=== PATIENT | female | born 1970 ===

== ENCOUNTER 2021-02-26 15:03 | Inpatient (IN) | payer BC, OTHER ==
[~2021-02-26] VITALS: Ht 165.1 cm; Wt 89.6 kg
[2021-02-26] MEDS: SODIUM CHLORIDE 0.9% 1,000 ML IV SCH ×2 (06:00→16:00)
--- NOTE | 2021-02-26 15:22 | NUR ---
PER RAHEL PEREZ HOLD HEPARIN GTT FOR NOW, PLAN LABS AND ASA.
[2021-02-26] MEDS ORDERED: ASPIRIN 81 MG TABLET CHEW PO ONE (15:30)
[2021-02-26] MEDS ORDERED: ASPIRIN 81 MG TABLET CHEW ONE (15:32)
--- NOTE | 2021-02-26 15:39 | NUR ---
ift from [place]. pt found out her father today, started having chest pain, went to ER, trop 197 ng/ml, nstemi, heparin gtt started at 10 ml/hr xapprox 3 hours, also received 81 mg asa, 650 tylenol, gi cocktail, and 0.4 nitro. pt w a&ox4 gcs 15, mostly portuguese speaking, family at bedside. ST 110s w inverted t waves, bp stable, chest pain very minimal and on R side, 2nd piv est, was at bedside, labs sent by [facility] per sep, to [facility]. as
[2021-02-26 15:44] LABS: BASOPHILS % (AUTO) 1 % (0-1); EOSINOPHILS % (AUTO) 1 % (1-7); LYMPHOCYTES % (AUTO) 16 % (22-44); MEAN CORPUSCULAR HEMOGLOBIN 21.8 pg (27.0-34.8); MEAN CORPUSCULAR HGB CONC 32.1 g/dL (32.4-35.8); MEAN PLATELET VOLUME 6.7 fL (7.4-10.4); MONOCYTES % (AUTO) 5 % (2-9); NEUTROPHILS % (AUTO) 78 % (42-75); PLATELET COUNT 498 x10^3/uL (130-400); RED BLOOD COUNT 5.51 x10^6/uL (3.82-5.3); RED CELL DISTRIBUTION WIDTH 22.1 % (9.6-15.2)
[2021-02-26 15:56] LABS: ALBUMIN 3.5 g/dL (3.4-5.0); ANION GAP 10 mmol/L (5-15); CALCIUM 9.1 mg/dL (8.5-10.1); CHLORIDE 108 mmol/L (98-107); CREATININE 0.51 mg/dL (0.55-1.02)
[2021-02-26 16:01] LABS: INTERNATIONAL NORMALIZED RATIO 1.01 (0.93-1.1); PROTHROMBIN TIME 10.8 Seconds (9.6-11.5)
[2021-02-26 16:05] LABS: ANISOCYTOSIS 1+
[2021-02-26 16:06] LABS: HYPOCHROMIA 1+; MICROCYTOSIS 2+
[2021-02-26 16:07] LABS: <PLATELET ESTIMATE> INCREASED; <PLT MORPHOLOGY> NORMAL PLT MORPH
[2021-02-26] MEDS ORDERED: HEPARIN 25,000 UNITS/250ML PMX 250 ML IV PRN (16:30)
[2021-02-26] MEDS ORDERED: HEPARIN 5,000 UNITS/ML, 1ML IV ONE (16:30)
--- NOTE | 2021-02-26 16:40 | NUR ---
CERTIFIED WELLNESS PROGRAM COORDINATOR DR. HOPSON IN SEEING PT AT THIS TIME. PT KIDS AT BEDSIDE TO TRANSLATE
[2021-02-26] MEDS ORDERED: LISI-170 PO (16:47)
[2021-02-26] MEDS ORDERED: CELE200C PO (16:47)
[2021-02-26] MEDS ORDERED: HEPARIN 25,000 UNITS/250ML PMX 250 ML ONE (16:52)
[2021-02-26] MEDS ORDERED: HEPARIN 5,000 UNITS/ML, 1ML ONE (16:52)
--- NOTE | 2021-02-26 17:22 | NUR ---
attempted to placed large bore iv per cardiology order. unable to advance iv catheter x2. pt has 2 ivs, both 20 from [facility]. will maintain those for now. pt wanting to rest after multiple unsuccessful iv attempts.
[2021-02-26] MEDS ORDERED: ENALAPRILAT 1.25 MG/ML, 2ML IVPush PRN (17:30)
[2021-02-26] MEDS ORDERED: NITROGLYCERIN 0.4 MG/SPRAY SL PRN (17:30)
[2021-02-26] MEDS ORDERED: MELATONIN 5 MG TABLET PO PRN (17:30)
[2021-02-26] MEDS ORDERED: morphine SULFATE 10 MG/ML, 1ML IVPush PRN (17:30)
[2021-02-26] MEDS ORDERED: HYDROcodone/APAP 5/325 TABLET PO PRN (17:30)
[2021-02-26] MEDS ORDERED: NITROGLYCERIN 0.4 MG BOTTLE (25 TABS) SL PRN (17:30)
[2021-02-26] MEDS ORDERED: ONDANSETRON 2MG/ML, 2ML IVPush PRN (17:30)
--- NOTE | 2021-02-26 17:47 | NUR ---
REPORT TO SERGEI CHAUDHARI. SERGEI STATED ROOM IS NOT CLEAN, THEY WILL CALL WHEN ROOM IS READY.
[2021-02-26 18:30] VITALS: BP 145/89
[2021-02-26 19:54] VITALS: BP 142/88
[2021-02-26] MEDS: HEPARIN 5,000 UNITS/ML, 1ML IV PRN (23:35)
[2021-02-27 02:35] VITALS: BP 127/85
[2021-02-27] MEDS: SODIUM CHLORIDE 0.9% 1,000 ML IV SCH ×2 (02:41→13:37)
[2021-02-27 02:56] LABS: MICROSCOPIC AUTO
[2021-02-27] MEDS: HEPARIN 5,000 UNITS/ML, 1ML IV PRN (06:06)
[2021-02-27 08:59] VITALS: BP 114/76
[2021-02-27] MEDS ORDERED: ASPIRIN 81 MG TABLET EC PO SCH (09:00)
[2021-02-27] MEDS ORDERED: VERAPAMIL 2.5 MG/ML, 2ML ONE (11:41)
[2021-02-27] MEDS ORDERED: MIDAZOLAM 1 MG/ML, 5ML ONE (11:41)
[2021-02-27] MEDS ORDERED: TICAGRELOR 90 MG TABLET ONE (11:41)
[2021-02-27] MEDS ORDERED: HEPARIN 1,000 UNITS/ML, 10ML ONE (11:41)
[2021-02-27] MEDS ORDERED: BIVALIRUDIN 250 MG ONE (11:41)
[2021-02-27] MEDS ORDERED: LIDOCAINE-MPF 1%, 5ML ONE (11:41)
[2021-02-27] MEDS ORDERED: FENTANYL PF 100 MCG/2ML ONE (11:41)
[2021-02-27] MEDS ORDERED: SODIUM CHLORIDE 0.9% 1,000 ML IV SCH (13:30)
[2021-02-27 13:54] VITALS: BP 119/80
[2021-02-27 14:58] LABS: BASOPHILS % (AUTO) 1 % (0-1); EOSINOPHILS % (AUTO) 1 % (1-7); LYMPHOCYTES % (AUTO) 21 % (22-44); MEAN CORPUSCULAR HGB CONC 31.8 g/dL (32.4-35.8); MONOCYTES % (AUTO) 7 % (2-9); NEUTROPHILS % (AUTO) 70 % (42-75); PLATELET COUNT 462 x10^3/uL (130-400); RED BLOOD COUNT 5.27 x10^6/uL (3.82-5.3); RED CELL DISTRIBUTION WIDTH 22.3 % (9.6-15.2)
[2021-02-27 15:11] LABS: CHLORIDE 109 mmol/L (98-107)
[2021-02-27 15:12] LABS: ANION GAP 6 mmol/L (5-15); BILIRUBIN,TOTAL 0.3 mg/dL (0.2-1.0); CALCIUM 8.5 mg/dL (8.5-10.1); CREATININE 0.52 mg/dL (0.55-1.02)
[2021-02-27 15:13] LABS: ALANINE AMINOTRANSFERASE 29 U/L (12-78); ALBUMIN 2.9 g/dL (3.4-5.0); ALKALINE PHOSPHATASE 97 U/L (45-117); TOTAL PROTEIN 7.4 g/dL (6.4-8.2)
[2021-02-27 15:24] LABS: <PLATELET ESTIMATE> INCREASED; <PLT MORPHOLOGY> NORMAL PLT MORPH; ANISOCYTOSIS 1+; HYPOCHROMIA 1+; MICROCYTOSIS 2+
[2021-02-27] MEDS ORDERED: ASPI81TA45 PO (16:18)
[2021-02-27] MEDS ORDERED: ATOR40TA78 PO (16:18)
[2021-02-27] MEDS ORDERED: ATORVASTATIN 40 MG TABLET PO SCH (21:00)
== END 2021-02-27 18:07 | disposition home or self-care (01) | DRG 281 ==
LOC: ED 18:41 → EDIP 18:42 → 5SO 18:51
PROVIDERS: ADMIT Internal Medicine; ATTEND Hospitalist
PROC: 4A023N7 Measurement of Cardiac Sampling and Pressure, Left Heart, Percutaneous Approach (ICD-10-PCS; principal; 2021-02-27)
PROC: B2111ZZ Fluoroscopy of Multiple Coronary Arteries using Low Osmolar Contrast (ICD-10-PCS; 2021-02-27)
PROC: B2151ZZ Fluoroscopy of Left Heart using Low Osmolar Contrast (ICD-10-PCS; 2021-02-27)
DX: I21.4 Non-ST elevation (NSTEMI) myocardial infarction (principal); I51.81 Takotsubo syndrome; E03.9 Hypothyroidism, unspecified; I10 Essential (primary) hypertension; E66.9 Obesity, unspecified; Z87.891 Personal history of nicotine dependence; Z79.899 Other long term (current) drug therapy; Z68.32 Body mass index [BMI] 32.0-32.9, adult
CPT/HCPCS: 36415; 80048; 80053; 81001; 82040; 83036; 84145; 84443; 84484; 84703; 85025; 85520; 85610; 85730; 93005; 93306; 93458; 96374; 96375; 99156; C1769; C1894; G0378; J0583; J1644; J2250; J3010; J7030; Q9967